=== PATIENT | female | born 1955 | race Hispanic/Latino ===

== ENCOUNTER 2017-06-11 05:42 | Day surgery (SDC) | payer BC ==
[2017-06-11] MEDS ORDERED: PEPCID PO NR (06:00)
[2017-06-11] MEDS ORDERED: VERSED IV NR (06:00)
[2017-06-11] MEDS ORDERED: NACL BACTERIOSTATIC INFILTRATI ONE (06:33)
[2017-06-11] MEDS: NACL 0.9% 1000 ML 1,000 ML IV SCH ×2 (06:35→09:03)
[2017-06-11] MEDS ORDERED: ANCEF/STERILE WATER 2 GM/20 ML IV NR (07:00)
[2017-06-11] MEDS ORDERED: DILAUDID ONE (07:15)
[2017-06-11] MEDS ORDERED: XYLOCAINE MPF 2% ONE (07:15)
[2017-06-11] MEDS ORDERED: DIPRIVAN 10 MG/ML IV ONE (07:15)
[2017-06-11] MEDS ORDERED: DILAUDID IV PRN (07:19)
[2017-06-11] MEDS ORDERED: ZOFRAN IV PRN (07:19)
--- NOTE | 2017-06-11 07:19 | Anesthesia Consultation ---
Anesthesia Consult and Med Hx Date of service: 06/11/17 - Airway Anesthetic Teeth Evaluation: Good, Crowns (top front) ROM Head & Neck: Adequate Mental/Hyoid Distance: Adequate Mallampati Class: Class II Intubation Access Assessment: Probably Good - Pulmonary Exam CTA: Yes - Cardiac Exam Cardiac Exam: RRR - Pre-Operative Health Status ASA Pre-Surgery Classification: ASA2 Proposed Anesthetic Plan: General - Pulmonary Hx Smoking: Yes (quit 2.5 yrs ago, smoked since age 17) Hx Asthma: No Hx Pneumonia: No (bronchitis in december) Hx Sleep Apnea: No (LUIS PRE SCREEN LOW RISK.) - Cardiovascular System Hx Hypertension: No - Central Nervous System Hx Neuromuscular Disorder: Yes (migraines) Hx Psychiatric Problems: Yes - Gastrointestinal Hx Gastroesophageal Reflux Disease: Yes - Hematic Hx Anemia: Yes (NO RECENT) - Other Systems Hx Alcohol Use: Yes (BEER/WINE DAILY) Hx Cancer: Yes (bladder)
--- NOTE | 2017-06-11 07:22 | Anesthesia Day of Surgery ---
Anesthesia Day of Surgery - Day of Surgery Patient Examined: Yes Patient H&P Reviewed: Yes Patient is NPO: Yes
[2017-06-11] MEDS ORDERED: WATER FOR IRRIG STERILE IR ONE (07:30)
[2017-06-11] MEDS ORDERED: OMNIPAQUE (300 MG) IV ONE (07:30)
[2017-06-11] MEDS ORDERED: DECADRON ONE (08:10)
[2017-06-11] MEDS ORDERED: ZOFRAN ONE (08:11)
--- NOTE | 2017-06-11 08:32 | Short Stay Summary ---
Short Stay Documentation Date of service: 06/11/17 - History H&P: obtained from office - Allergies and Medications Current Medications: Allergies No Known Allergies Allergy (Verified 06/07/17 09:19) Home Medications Medication Instructions Recorded Confirmed Last Taken Type Aspirin [Adult Low Dose Aspirin EC] 81 mg PO DAILY 05/07/17 06/11/17 1 Week Ago History Escitalopram [Lexapro] 20 mg PO DAILY 05/07/17 05/07/17 06/10/17 History Pantoprazole [Protonix] 40 mg PO QDAY 05/07/17 05/07/17 06/10/17 History buPROPion SR [Wellbutrin Sr] 150 mg PO QAM 05/07/17 05/07/17 06/10/17 History SUMAtriptan SUCCINATE [Imitrex] 25 mg PO PRN 06/11/17 06/11/17 06/11/17 06:15 History Active Medications Cefazolin Sodium (Ancef/Sterile Water 2 Gm/20 Ml) 2 gm IV PREOP NR Stop: 06/11/17 23:59 Famotidine (Pepcid) 20 mg PO PREOP NR Stop: 06/11/17 23:00 Last Admin: 06/11/17 06:28 Dose: 20 mg Hydromorphone HCl (Dilaudid) 0.5 mg IV Q10MIN PRN PRN Reason: Pain , Severe (7-10) Stop: 06/11/17 16:00 Sodium Chloride (Nacl 0.9% 1000 Ml) 1,000 mls @ 75 mls/hr IV DIRECT AGUSTIN Last Admin: 06/11/17 06:35 Dose: 75 mls/hr Midazolam HCl (Versed) 2 mg IV PREOP NR Stop: 06/11/17 23:59 Last Admin: 06/11/17 07:18 Dose: 2 mg Ondansetron HCl (Zofran) 4 mg IV ONCE PRN PRN Reason: Nausea And Vomiting Stop: 06/11/17 15:00 - Brief post op/procedure progress note Date of procedure: 06/11/17 Pre-op diagnosis: bladder cancer Post-op diagnosis: same Procedure: cysto, rpg, random bladder bx ---rt & left & posterior fernando Anesthesia: GETA Surgeon: GREGORY FITZGERALD Estimated blood loss: minimal Pathology: list (bladder bx) Specimen disposition: to lab - Hospital course Hospital course: tahira & jamey on chart - Disposition Condition at discharge: Stable Disposition: DC-01 TO HOME OR SELFCARE Short Stay Discharge Plan Follow up with: PRIMARY CARE, [Primary Care Provider] - 7 Days
--- NOTE | 2017-06-11 08:56 | Operative Report ---
PREOPERATIVE DIAGNOSES: History of bladder cancer (transitional cell carcinoma). POSTOPERATIVE DIAGNOSES: History of bladder cancer, (transitional cell carcinoma). PROCEDURE: Cystoscopy, bilateral retrograde pyelograms, random bladder biopsies (right and left posterior fernando). SURGEON: Brenden Mendez MD ANESTHESIA: General. ESTIMATED BLOOD LOSS: Minimal. FLUIDS: Crystalloid. COMPLICATIONS: No complications. INDICATIONS: This 62-year-old female seen by Dr. Claire in the office with a history of bladder cancer, presents now for endoscopic evaluation. The patient denies any hematuria. She presents for surgical intervention. DESCRIPTION OF PROCEDURE: The patient was taken to the operative suite, placed in a supine position. After adequate general anesthesia, placed in a dorsal lithotomy position, prepped and draped in a sterile fashion. Pancystourethroscopy was performed with a 22 Faroese Storz cystoscope. No urethral abnormalities. Bladder revealed no tumors or stones. Both ureteral orifices in normal position. Bilateral retrograde pyelograms were obtained with an 8 Faroese Dyer catheter and 8 mL of contrast. No filling defects or obstruction. Bladder was unremarkable; however, with a history of bladder cancer, a right, left and posterior wall random biopsy was obtained. Fulguration was performed as well. The patient tolerated the procedure well. She was extubated and taken to recovery room in stable condition. She will go home on [facility] and [place] and follow up in the office. JOB# [id number] RICHARD/TRUDY
[2017-06-11] MEDS ORDERED: NEO SYNEPHRINE/NS Syringe(OR USE) IV ONE (09:00)
[2017-06-11 09:50] VITALS: BP 125/78
--- NOTE | 2017-06-11 09:51 | Post Anesthesia Evaluation ---
- Post Anesthesia Evaluation Patient Participated: Yes Airway Patent: Yes Stable Respiratory Function: Yes Nausea/Vomiting: No Temp > 96.8F: Yes Pain Manageable: Yes Adequeate Hydration: Yes Anesthesia Complications: No Block Receding Appropriately: Not Applicable Patient on Ventilator: No
--- NOTE | 2017-06-11 13:45 | Fluoroscopy Report ---
Retrograde pyelogram: Bladder lesions. Injections of contrast were made into each distal ureter with new opacification of the ureters and intrarenal collecting systems. No abnormalities identified.
== END 2017-06-11 05:43 | disposition home or self-care (01) ==
LOC: OR 05:42
PROVIDERS: ATTEND Urology
DX: Z85.51 Personal history of malignant neoplasm of bladder (principal); G43.909 Migraine, unspecified, not intractable, without status migrainosus; I10 Essential (primary) hypertension; K21.9 Gastro-esophageal reflux disease without esophagitis; Z87.891 Personal history of nicotine dependence; Z72.89 Other problems related to lifestyle; Z79.82 Long term (current) use of aspirin; Z79.899 Other long term (current) drug therapy; Z80.52 Family history of malignant neoplasm of bladder
CPT/HCPCS: 52204; 74420; 88305; 88342; A4217; C1758; C1769; J0690; J1100; J1170; J2250; J2370; J2405; J2704; J7030; Q9967